=== PATIENT | female | born 1960 | race African-American/Black ===

== ENCOUNTER 2020-05-02 15:22 | IRF | payer BC, SELFPAY ==
--- NOTE | ~2020-05-02 | XR_ITS ---
EXAMINATION: XR chest 1V portable DATE: 05/10/2020 12:22 INDICATION: Edema. TECHNIQUE: A single frontal view of the chest was obtained. COMPARISON: None. FINDINGS: There is no pneumonia, pleural effusion, or pneumothorax. Cardiomegaly is noted. Median markus rnotomy wires and mediastinal surgical clips are seen. IMPRESSION: 1. Cardiomegaly. Reviewed, dictated and finalized at location A. IMPRESSION: 1. Cardiomegaly.
--- NOTE | ~2020-05-02 | US_ITS ---
EXAMINATION: US venous doppler LE EXAM DATE: 05/09/2020 15:13 INDICATION: Lower extremity edema. TECHNIQUE: Multiple grayscale, color flow and Doppler images of the lower extremity deep venous syste ms bilaterally were obtained and reviewed. There is no prior study for comparison. FINDINGS: Right side: The right common femoral, femoral and profunda veins demonstrate normal color flow, respi ratory variation, augmentation and compressibility. Compressibility, color flow confirmed within the right popliteal, posterior tibial, peroneal, and greater saphenous veins. Left side: The left common femoral, femoral and profunda veins demonstrate normal color flow, respira tory variation, augmentation and compressibility. Compressibility, color flow confirmed within the l eft popliteal, posterior tibial, peroneal, and greater saphenous veins. IMPRESSION: No lower extremity deep venous thrombosis bilaterally. Reviewed, dictated and finalized at location A.
--- NOTE | 2020-05-02 15:33 | ADMGEN ---
This patient, Haley Cruz, was admitted to [facility] Room 223-02. Patient/family oriented to hospital policies and general routines including ID bracelet, bed and alarms, visiting hours, pain management, procedures, bathroom and other care routines, personal items, smoking policy, room service/diet, and visiting hours. Valuables list has been completed. Information on how to activate the Rapid Response Team has been discussed. Patient/Family are encouraged to report perceived risks to care and to ask questions if they do not understand what they are told or what they should do.
[2020-05-02 15:48] VITALS: BP 153/78; PULSE 94; RESP 20; TEMP 36.6; O2SAT 98; BMI 54.3
[2020-05-02 16:47] LABS: Glucose Point of Care 309 (65-105)
[2020-05-02 19:52] VITALS: PULSE 70
[2020-05-02] MEDS: carvediloL 25 MG TABLET BY MOUTH (19:52)
[2020-05-02] MEDS: SENNA/DOCUSATE SODIUM TABLET 2 TAB PO (19:53)
[2020-05-02] MEDS: ATORVASTATIN 40 MG TABLET 80 MG BY MOUTH (19:53)
[2020-05-02] MEDS: INSULIN GLARGINE (*BKC) 100 UNITS/ML 10 UNITS SUB-Q (20:15)
[2020-05-02 21:40] LABS: Glucose Point of Care 321 (65-105)
[2020-05-02 21:46] VITALS: BP 142/77; PULSE 88; RESP 18; TEMP 36.7; O2SAT 98
[2020-05-02] MEDS: HEPARIN SODIUM 5,000 UNITS/ML VIAL 7500 UNITS SUB-Q (22:31)
[2020-05-03] VITALS (7 sets, daily range): BP systolic 132–149; BP diastolic 71–84; PULSE 84–98; RESP 18–20; TEMP 36.2–36.9; O2SAT 93–100; BMI 54.3
[2020-05-03 05:05] LABS: Basophils Percent Auto 0.5 % (0.2-1.2); Eosinophils Absolute Auto 0.2 K/mm3 (0-0.3); Eosinophils Percent Auto 2.3 % (0-4.4); Hematocrit 26.3 % (37.0-47.0); Hemoglobin 8.2 g/dL (12.0-15.0); Immature Granulocyte Absolute 0.12 K/mm3 (0.00-0.031); Immature Granulocyte Percent A 1.4 % (0-0.5); Lymphocytes Absolute Auto 1.56 K/mm3 (0.9-3.2); Lymphocytes Percent Auto 18.1 % (18.3-44.2); Mean Corpuscular HGB Conc 31.2 g/dl (32-36); Mean Corpuscular Volume 102.7 fl (80-100); Mean Platelet Volume 10.9 fl (7.4-10.4); Monocytes Absolute Auto 0.9 K/mm3 (0.1-0.6); Monocytes Percent Auto 10.9 % (2.6-8.5); Neutrophils Absolute Auto 5.8 K/mm3 (1.3-6.7); Neutrophils Percent Auto 66.8 % (45.5-73.1); Nucleated Red Blood Cells Absolute Auto 0.1 K/mm3 (0.0-0.012); Nucleated Red Blood Cells Perc 1.3 % (0.0-0.2); Platelet Count Result 232 k/mm3 (150-375); Red Blood Count 2.56 M/mm3 (4.2-5.4); Red Cell Distribution Width 19.6 % (11.5-14.5); White Blood Count 8.6 K/mm3 (4.5-10.0)
[2020-05-03] MEDS: LEVOTHYROXINE SODIUM 75 MCG TABLET PO (05:19)
[2020-05-03 05:22] LABS: Blood Urea Nitrogen 38 mg/dL (7-17); Carbon Dioxide 28 mmol/L (22-30); Chloride 105 mmol/L (98-107); Estimated CRCL calculation 62 ml/min; Estimated Glomerular Filt Rate 55; Glucose 193 mg/dL (65-105); Potassium 4.2 mmol/L (3.4-5.0); Sodium 139 mmol/L (137-145)
[2020-05-03] MEDS: HEPARIN SODIUM 5,000 UNITS/ML VIAL 7500 UNITS SUB-Q ×3 (05:38→21:20)
[2020-05-03] MEDS: INSULIN ASPART (*BKC) 100 UNITS/ML 8 UNITS SUB-Q ×3 (06:57→17:00)
[2020-05-03 07:17] LABS: Glucose Point of Care 162 (65-105)
[2020-05-03] MEDS: SENNA/DOCUSATE SODIUM TABLET 2 TAB PO (07:52)
[2020-05-03] MEDS: ASPIRIN 81 MG ENTERIC TABLET PO (07:52)
[2020-05-03] MEDS: predniSONE 20 MG TABLET PO (07:52)
[2020-05-03] MEDS: carvediloL 25 MG TABLET BY MOUTH ×3 (07:52→17:02)
[2020-05-03] MEDS: VITAMIN B COMPLEX CAPSULE 1 CAP PO (07:52)
[2020-05-03] MEDS: AMIODARONE HCL 200 MG TABLET PO (07:53)
[2020-05-03] MEDS: FUROSEMIDE 40 MG TABLET PO (07:53)
[2020-05-03] MEDS: CAPSAICIN 0.025% CREAM 60 GM TUBE 1 APPLIC TOPICAL ×3 (07:53→17:02)
[2020-05-03] MEDS: LATANOPROST 0.005% OP SOLN 2.5 ML BTL 1 DROP EACH EYE (07:54)
[2020-05-03] MEDS: polyethylene glycoL 3350 17 GM POWD.PACK BY MOUTH (07:54)
--- NOTE | 2020-05-03 11:00 | WPDREHABHP ---
H&P: HPI History of Present Illness Chief complaint: aortic dissection Narrative: Haley Cruz is a 60 year old female HISTORY OF PRESENT ILLNESS: The patient's primary rehab impairment category is cardiac The etiologic diagnosis is aortic dissection / status post surgery I saw this patient [id number] on May 03, 2020 at 11:00 a.m. The patient is a 60-year-old woman with a past medical history of coronary artery disease, hypertension, dyslipidemia, non ST elevation PA, pericardial effusion with cardiac tamponade and type 2 diabetes mellitus who presented to a local hospital in March 29, [address] scan was found to have a type a aortic dissection. She was walking to her car following the CT scan and fell. She broke fall with her left hand and also struck her knee and right side of her face on the ground. She had an immediate onset of swelling and bruising around the right eye and was unable to open it. Facial she TIANA showed no fracture and imaging of the knee and wrist were negative for fracture. She was transferred to [facility] for further management of the aortic dissection. Cardiothoracic surgery was consulted and the since the patient was on Plavix and was asymptomatic they opted to perform the repair after Plavix washed out and the patient was monitored in the ICU until that could be completed. Patient underwent surgical repair on April 08, 2020 followed by a delayed sternal closure with plating on March 20, 2020. Ophthalmology was consulted to evaluate of preseptal hematoma with no intervention as patient vision remains intact. The patient hospitalization has been significant for atrial fibrillation with rapid ventricular response treated with amiodarone and Coreg, acute blood-loss anemia currently stable, acute pulmonary insufficiency currently on room air, acute on chronic combined systolic and diastolic heart failure ejection fraction 40%, coronary artery disease aspirin and statin continued facial trauma stable vision within normal limit acute kidney injury hemodialysis catheter removed April 26 and had has resolved uncontrolled diabetes mellitus she has been weaned off steroids slowly over a year, Lantus and Humalog, hypothyroidism continued with Synthroid and postoperative pain treated with neurologic 6 the patient will be discharged to rehab on heparin 5000 units q.8 hours for DVT prophylaxis. The patient has not traveled outside the [place] or had contact with someone who is ill that has traveled outside the [place] in the past 21 days. The patient has not traveled to an area within the [place] that is experiencing known transmission of the Coronavirus and has not had close personal contact with anyone that has. The patient does not have a fever. The patient is not experiencing any lower respiratory illness symptoms. Therapy was initiated at the acute care facility and the patient transferred to us from [facility] on May 02, 2012 on FALLS OR SURGERIES: The patient has had major surgeries in the 100 days prior to admission. They had falls in the past year. They had falls with injury in the past year. PAST MEDICAL HISTORY: abnormal cardiovascular stress test, arthritis, atherosclerosis of the coronary artery disease, dyslipidemia, elevated liver enzymes, essential hypertension, non ST elevation PA, hypothyroidism, mental disorder or distress rather, neuroendocrine carcinoma, orthostatic hypotension, papillary carcinoma of the thyroid, pericardial effusion with cardiac tamponade, pneumonia of the right lower lobe, sepsis, type 2 diabetes mellitus. PAST SURGICAL HISTORY: Retroperitoneal abdominal biopsy 2016, cholecystectomy, fine needle aspiration 2012, pancreas biopsy, thyroidectomy, partial splenectomy, tumor removal, tonsillectomy, wisdom tooth extraction. SOCIAL HISTORY: Never a smoker no alcohol or drug abuse. The patient was with the daughter. Daughters name is January. She lives in a on
[2020-05-03 11:56] LABS: Glucose Point of Care 160 (65-105)
--- NOTE | 2020-05-03 13:11 | PCNSR ---
On 05/03/20, the student, Teddy Sykes, provided care and completed [facility] documentation on this patient. I have reviewed the student's documentation and agree with the findings.
--- NOTE | 2020-05-03 15:52 | RPD ---
INDIVIDUALIZED PLAN OF CARE FOR Haley Cruz Brief Synthesis of Pre-Admission Screen, Post-Admission Evaluation and Therapy Evaluations: The patient presents to rehab with an aortic dissection. Comorbidities include acute postoperative pain, acute blood loss anemia, atrial fibrillation with RVR, acute pulmonary insufficiency, acute on chronic combined systolic and diastolic heart failure, coronary artery disease, hypertension, facial trauma, morbid obesity, acute kidney injury requiring hemodialysis, diabetes mellitus type 2 with hyperglycemia, hypothyroidism, sternotomy with aortic repair with delayed closure and sternal plating. The patient?s needs will be best met in an intensive program vs. at a lower level of care. The patient requires physician services for medical oversight, management of post-op complications in setting of present comorbidities, and pain management. The patient requires nursing services for anticoagulation therapy, diabetes training, DVT prophylactics, infection protection, medication management and education, pressure relief, and wound care. Deficits include:ADLs, Balance, Endurance, Family Training/Education, Mobility, Pain Management, ROM, Safety, Strength, and Transfers Director Ambulatory/Case Management for: Discharge Planning and Patient/Family Counseling Physical Therapy: 5 days per week for 90 minutes. Treatments may include: Therapeutic Exercise, Gait Training, Neuromuscular Re-education, Transfer Training, Community Reintegration, Bed Mobility, Patient/Family Education, Wheelchair Mobility Group Therapy/Concurrent Therapy Rationales: -Improve attention span during functional activities in a distracted environment. -Enhance problem solving and/or adequate judgment skills during functional activities in a distracted environment. -Promote increased safety awareness in a distracted environment to reduce fall risk with functional tasks, transfers, and ambulation to allow a more safe, self-sufficient return to the home environment. -Improve dynamic balance skills to promote safety and independence with functional activities in a distracted environment for maximum gain. Occupational Therapy: 5 days per week for 90 minutes. Treatments may include: Therapeutic Exercise, Therapeutic Activity, Cognitive Training, Self-Care Transfer Training, Community Reintegration, Home Management, Patient/Family Education, Wheelchair Mobility Training, Energy Conservation Training Group Therapy/Concurrent Therapy Rationales: -Allow therapist to observe and teach generalization and carry-over of skills learned in individual therapy. -Enhance problem solving and sequencing skills during therapeutic activities in a distracted environment. -Promote increased safety awareness in a realistic setting to reduce fall risk with functional tasks due to visual and verbal distractions. -Increase functional level with ADLs, ADL transfers and use of adaptive equipment through therapeutic activities with others while promoting safety to allow a more safe, self-sufficient return home. Medical Prognosis: Good Anticipated Length of Stay: 10 days Rehab Goals: Eating Goal: 06-Independent Oral Hygiene Goal: 06-Independent Toileting Hygiene Goal: 06-Independent Shower/Bathe Self Goal: 06-Independent Upper Body Dressing Goal: 06-Independent Lower Body Dressing Goal: 06-Independent Putting On/Taking Off Footwear Goal: 06-Independent Rolling Left and Right Goal: 06-Independent Sit to Lying Goal: 06-Independent Lying to Sitting on Side of Bed Goal: 06-Independent Sit to Stand Goal: 06-Independent Chair/Dim-vw-Ppnxx Transfer Goal: 06-Independent Toilet Transfer Goal: 06-Independent Car Transfer Goal: 06-Independent Walk 10' Goal: 06-Independent Walk 50' with Two Turns Goal: 06-Independent Walk 150' Goal: 06-Independent Walk 10' on Uneven Surface Goal: 06-Independent 1 Step (Curb) Goal: 05-Setup or Clean Up Assistance 4 Steps Goal: 09-Not Applicable 12 Steps Goal Score:
[2020-05-03 16:48] LABS: Glucose Point of Care 225 (65-105)
[2020-05-03] MEDS: INSULIN ASPART (*BKC) 100 UNITS/ML SUB-Q (17:00)
[2020-05-03] MEDS: POLYSACCHARIDE IRON COMPLEX 150 MG CAPSULE PO (17:01)
[2020-05-03] MEDS: INSULIN GLARGINE (*BKC) 100 UNITS/ML 10 UNITS SUB-Q (17:03)
[2020-05-03] MEDS: SILVERGEL (ELTA) 45 ML 1 APPLIC TOPICAL (17:03)
[2020-05-03 21:12] LABS: Glucose Point of Care 141 (65-105)
[2020-05-03] MEDS: ATORVASTATIN 40 MG TABLET 80 MG BY MOUTH (21:20)
[2020-05-04] VITALS (7 sets, daily range): BP systolic 124–169; BP diastolic 75–83; PULSE 81–98; RESP 16–20; TEMP 36.2–36.9; O2SAT 98–100
[2020-05-04] MEDS: HEPARIN SODIUM 5,000 UNITS/ML VIAL 7500 UNITS SUB-Q ×3 (06:47→20:05)
[2020-05-04] MEDS: LEVOTHYROXINE SODIUM 75 MCG TABLET PO (06:47)
[2020-05-04 06:48] LABS: Glucose Point of Care 109 (65-105)
[2020-05-04] MEDS: AMIODARONE HCL 200 MG TABLET PO (08:43)
[2020-05-04] MEDS: carvediloL 25 MG TABLET BY MOUTH ×3 (08:43→17:13)
[2020-05-04] MEDS: POLYSACCHARIDE IRON COMPLEX 150 MG CAPSULE PO ×2 (08:43→17:11)
[2020-05-04] MEDS: predniSONE 20 MG TABLET PO (08:44)
[2020-05-04] MEDS: FUROSEMIDE 40 MG TABLET PO (08:44)
[2020-05-04] MEDS: ASPIRIN 81 MG ENTERIC TABLET PO (08:44)
[2020-05-04] MEDS: VITAMIN B COMPLEX CAPSULE 1 CAP PO (08:44)
[2020-05-04] MEDS: SENNA/DOCUSATE SODIUM TABLET 2 TAB PO (08:44)
[2020-05-04] MEDS: polyethylene glycoL 3350 17 GM POWD.PACK BY MOUTH (08:44)
[2020-05-04] MEDS: LATANOPROST 0.005% OP SOLN 2.5 ML BTL 1 DROP EACH EYE (08:45)
[2020-05-04] MEDS: INSULIN ASPART (*BKC) 100 UNITS/ML 8 UNITS SUB-Q ×3 (08:51→17:12)
[2020-05-04 12:35] LABS: Glucose Point of Care 159 (65-105)
[2020-05-04] MEDS: SILVERGEL (ELTA) 45 ML 1 APPLIC TOPICAL (14:38)
[2020-05-04] MEDS: CAPSAICIN 0.025% CREAM 60 GM TUBE 1 APPLIC TOPICAL ×2 (14:38→17:13)
[2020-05-04 17:05] LABS: Glucose Point of Care 194 (65-105)
[2020-05-04] MEDS: INSULIN GLARGINE (*BKC) 100 UNITS/ML 10 UNITS SUB-Q (17:10)
[2020-05-04] MEDS: ATORVASTATIN 40 MG TABLET 80 MG BY MOUTH (20:06)
[2020-05-04 21:06] LABS: Glucose Point of Care 227 (65-105)
[2020-05-05] VITALS (7 sets, daily range): BP systolic 116–149; BP diastolic 65–89; PULSE 85–98; RESP 16–18; TEMP 36.2–36.9; O2SAT 97–98
[2020-05-05] MEDS: LEVOTHYROXINE SODIUM 75 MCG TABLET PO (06:27)
[2020-05-05] MEDS: HEPARIN SODIUM 5,000 UNITS/ML VIAL 7500 UNITS SUB-Q ×3 (06:27→20:41)
[2020-05-05 06:52] LABS: Glucose Point of Care 141 (65-105)
[2020-05-05] MEDS: INSULIN ASPART (*BKC) 100 UNITS/ML 8 UNITS SUB-Q ×3 (09:20→17:51)
[2020-05-05] MEDS: polyethylene glycoL 3350 17 GM POWD.PACK BY MOUTH (09:20)
[2020-05-05] MEDS: carvediloL 25 MG TABLET BY MOUTH ×3 (09:21→17:50)
[2020-05-05] MEDS: FUROSEMIDE 40 MG TABLET PO (09:21)
[2020-05-05] MEDS: LATANOPROST 0.005% OP SOLN 2.5 ML BTL 1 DROP EACH EYE (09:21)
[2020-05-05] MEDS: SENNA/DOCUSATE SODIUM TABLET 2 TAB PO (09:21)
[2020-05-05] MEDS: ASPIRIN 81 MG ENTERIC TABLET PO (09:23)
[2020-05-05] MEDS: CAPSAICIN 0.025% CREAM 60 GM TUBE 1 APPLIC TOPICAL ×2 (09:23→12:34)
[2020-05-05] MEDS: AMIODARONE HCL 200 MG TABLET PO (09:23)
[2020-05-05] MEDS: POLYSACCHARIDE IRON COMPLEX 150 MG CAPSULE PO ×2 (09:23→17:51)
[2020-05-05] MEDS: predniSONE 20 MG TABLET PO (09:23)
[2020-05-05] MEDS: VITAMIN B COMPLEX CAPSULE 1 CAP PO (09:25)
[2020-05-05] MEDS: SILVERGEL (ELTA) 45 ML 1 APPLIC TOPICAL (09:25)
[2020-05-05 11:49] LABS: Glucose Point of Care 141 (65-105)
--- NOTE | 2020-05-05 13:47 | WPDNEURORHBP ---
Subjective Date/time seen: 05/05/20 13:47 CAD,Hypertension,Hyperlipidemia,Aortic dissection,S/P ripair, Functional Status Ambulation Ability Ability to Ambulate 10 Feet: Standby Assistance Ambulation Assistive Devices: Walker, Standard Transfers Ability Ability to Transfer In/Out of Chair: Moderate Assistance X 1 Exam Const: General: cooperative, comfortable and no acute distress Nutritional Appearance: obese Orientation/consciousness: patient oriented x3 HENMT: Head: normal to inspection Eyes: General: appearance normal, both eyes and all related structures Neck: Neck: full ROM Resp: Effort & Inspection: able to speak in complete sentences Cardio: Rhythm: abnormal rhythm GI: Auscultation: normal bowel sounds Skin: General skin exam: no rashes or lesions noted Neuro: General: patient oriented x3 Cranial nerves: Yes CN's II-XII intact bilaterally Cognition (Neuro): normal cognition Speech: normal speech Gait exam (Neuro): Unable to assess gait Motor exam (neuro): Abnormal motor strength present Sensory Exam: Sensory deficit (Neuro) Deep tendon reflexes (DTR's): Right triceps reflex intensity grade: 1+, Left triceps reflex intensity grade: 1+, Rt Biceps (C5, C6): 1+, Left biceps reflex intensity grade: 1+, Right brachioradialis reflex intensity grade: 1+, Left brachioradialis reflex intensity grade: 1+, Right patellar reflex intensity grade: 1+, Left patellar reflex intensity grade: 1+, Right ankle reflex intensity grade: 0 and Left ankle reflex intensity grade: 0 Extrem: General: normal to inspection Psych: Appearance: grossly normal Objective Data Vital Signs Vital Signs: Vital Signs - 24 hr 05/04/20 14:00 05/04/20 14:36 05/04/20 17:13 Temperature 36.9 C Pulse Rate 98 96 96 Respiratory Rate 16 Blood Pressure 124/79 Pulse Oximetry 100 05/04/20 22:00 05/05/20 05:51 05/05/20 09:21 Temperature 36.2 C L 36.2 C L Pulse Rate 81 98 98 Respiratory Rate 18 18 Blood Pressure 140/75 149/89 H Pulse Oximetry 98 97 05/05/20 09:23 05/05/20 12:34 Temperature Pulse Rate 98 98 Respiratory Rate Blood Pressure Pulse Oximetry Intake/Output Intake/Output: Intake & Output 05/02/20 05/03/20 05/04/2019/20 23:59 23:59 23:59 23:59 Intake Total 360 360 600 480 Balance 360 360 600 480 Meds/Results Medications: Active Medications Generic Name Dose Route Start Last Admin Trade Name Freq PRN Reason Stop Dose Admin Acetaminophen 500 mg 05/02/20 17:25 Tylenol Tablet PO Q6H PRN Pain 1-3 Amiodarone HCl 200 mg 05/03/20 09:00 05/05/20 09:23 Pacerone PO 200 mg DAILY LAMONTE Administration Artificial Tears 2 drop 05/02/20 17:25 Artificial Tears EACH EYE TID PRN dry eyes Aspirin 81 mg 05/03/20 09:00 05/05/20 09:23 Aspirin Ec PO 81 mg DAILY LAMONTE Administration Atorvastatin Calcium 80 mg 05/02/20 21:00 05/04/20 20:06 Lipitor BY MOUTH 06/01/20 21:01 80 mg HS LAMONTE Administration Bisacodyl 10 mg 05/02/20 17:25 Dulcolax Suppository RECTAL DAILY PRN Constipation Capsaicin 1 applic 05/03/20 09:00 05/05/20 12:34 Zostrix TOPICAL 1 applic TID LAMONTE Administration Carvedilol 25 mg 05/02/20 17:40 05/05/20 12:34 Coreg BY MOUTH 25 mg TID LAMONTE Administration Dextrose 12.5 gm 05/02/20 18:35 Dextrose 50% Syringe IV PUSH PRN PRN Hypoglycemia Protocol Furosemide 40 mg 05/03/20 09:00 05/05/20 09:21 Lasix Tablet PO 40 mg DAILY LAMONTE Administration Glucagon 1 mg 05/02/20 18:35 Glucagon For Inj IM PRN PRN Hypoglycemia Protocol Glucose 15 gm 05/02/20 18:35 Glutose 15 PO PRN PRN Hypoglycemia Protocol Heparin Sodium (Porcine) 7,500 units 05/02/20 22:00 05/05/20 13:17 Heparin Sodium SUB-Q 7,500 units Q8HR LAMONTE Administration Dextrose 1,000 mls @ 100 mls/hr 05/02/20 18:35 Dextrose 5% 1,000 Ml IVPB PRN PRN
[2020-05-05 17:14] LABS: Glucose Point of Care 215 (65-105)
[2020-05-05] MEDS: INSULIN ASPART (*BKC) 100 UNITS/ML SUB-Q (17:49)
[2020-05-05] MEDS: INSULIN GLARGINE (*BKC) 100 UNITS/ML 10 UNITS SUB-Q (17:53)
[2020-05-05] MEDS: ATORVASTATIN 40 MG TABLET 80 MG BY MOUTH (20:41)
[2020-05-05 21:04] LABS: Glucose Point of Care 216 (65-105)
[2020-05-06] VITALS (7 sets, daily range): BP systolic 109–118; BP diastolic 63–75; PULSE 82–94; RESP 18–20; TEMP 36.3–36.9; O2SAT 94–96
[2020-05-06] MEDS: LEVOTHYROXINE SODIUM 75 MCG TABLET PO (06:27)
[2020-05-06] MEDS: HEPARIN SODIUM 5,000 UNITS/ML VIAL 7500 UNITS SUB-Q ×3 (06:28→20:55)
[2020-05-06 07:03] LABS: Glucose Point of Care 119 (65-105)
[2020-05-06] MEDS: INSULIN ASPART (*BKC) 100 UNITS/ML 8 UNITS SUB-Q ×3 (09:26→17:49)
[2020-05-06] MEDS: POLYSACCHARIDE IRON COMPLEX 150 MG CAPSULE PO ×2 (09:26→17:48)
[2020-05-06] MEDS: SENNA/DOCUSATE SODIUM TABLET 2 TAB PO (09:27)
[2020-05-06] MEDS: carvediloL 25 MG TABLET BY MOUTH ×3 (09:27→17:47)
[2020-05-06] MEDS: VITAMIN B COMPLEX CAPSULE 1 CAP PO (09:27)
[2020-05-06] MEDS: AMIODARONE HCL 200 MG TABLET PO (09:28)
[2020-05-06] MEDS: FUROSEMIDE 40 MG TABLET PO (09:28)
[2020-05-06] MEDS: predniSONE 20 MG TABLET PO (09:28)
[2020-05-06] MEDS: polyethylene glycoL 3350 17 GM POWD.PACK BY MOUTH (09:28)
[2020-05-06] MEDS: ASPIRIN 81 MG ENTERIC TABLET PO (09:28)
[2020-05-06] MEDS: LATANOPROST 0.005% OP SOLN 2.5 ML BTL 1 DROP EACH EYE (09:36)
[2020-05-06] MEDS: SILVERGEL (ELTA) 45 ML 1 APPLIC TOPICAL (09:37)
[2020-05-06 12:27] LABS: Glucose Point of Care 118 (65-105)
[2020-05-06 17:22] LABS: Glucose Point of Care 228 (65-105)
[2020-05-06] MEDS: INSULIN ASPART (*BKC) 100 UNITS/ML SUB-Q (17:48)
[2020-05-06] MEDS: INSULIN GLARGINE (*BKC) 100 UNITS/ML 10 UNITS SUB-Q (17:49)
[2020-05-06] MEDS: ATORVASTATIN 40 MG TABLET 80 MG BY MOUTH (20:55)
[2020-05-06 21:07] LABS: Glucose Point of Care 150 (65-105)
[2020-05-07] VITALS (7 sets, daily range): BP systolic 113–137; BP diastolic 56–69; PULSE 82–92; RESP 18–20; TEMP 36.4–37.1; O2SAT 98–100
[2020-05-07] MEDS: HEPARIN SODIUM 5,000 UNITS/ML VIAL 7500 UNITS SUB-Q ×3 (06:10→20:44)
[2020-05-07] MEDS: LEVOTHYROXINE SODIUM 75 MCG TABLET PO (06:10)
[2020-05-07 06:36] LABS: Glucose Point of Care 96 (65-105)
[2020-05-07] MEDS: AMIODARONE HCL 200 MG TABLET PO (07:52)
[2020-05-07] MEDS: ASPIRIN 81 MG ENTERIC TABLET PO (07:52)
[2020-05-07] MEDS: POLYSACCHARIDE IRON COMPLEX 150 MG CAPSULE PO ×2 (07:52→17:13)
[2020-05-07] MEDS: carvediloL 25 MG TABLET BY MOUTH ×3 (07:52→17:12)
[2020-05-07] MEDS: FUROSEMIDE 40 MG TABLET PO (07:52)
[2020-05-07] MEDS: predniSONE 20 MG TABLET PO (07:53)
[2020-05-07] MEDS: SENNA/DOCUSATE SODIUM TABLET 2 TAB PO (07:53)
[2020-05-07] MEDS: VITAMIN B COMPLEX CAPSULE 1 CAP PO (07:54)
[2020-05-07] MEDS: polyethylene glycoL 3350 17 GM POWD.PACK BY MOUTH (07:54)
[2020-05-07] MEDS: INSULIN ASPART (*BKC) 100 UNITS/ML 8 UNITS SUB-Q ×3 (07:55→17:14)
[2020-05-07] MEDS: LATANOPROST 0.005% OP SOLN 2.5 ML BTL 1 DROP EACH EYE (08:48)
[2020-05-07 11:30] LABS: Glucose Point of Care 147 (65-105)
--- NOTE | 2020-05-07 12:24 | PC.NURSE ---
patient just had pain med at 0846 so the 1000 a.m. med was not given.
--- NOTE | 2020-05-07 12:55 | PCPTNOTE ---
Haley Cruz was evaluated for a bariatric wheeled walker on 05/07/2020 by this physical therapist. The bariatric wheeled walker will resolve patient's mobility limitations and will be used for ADL's within the home. The patient can safely use the wheeled walker. ?The wheeled walker will resolve the patient?s mobility deficits, including safety with transfers/gait and ADL's. Tabitha Rose PT
--- NOTE | 2020-05-07 14:19 | PCPTNOTE ---
Tabitha Rose, PT completed an inpatient rehab wheelchair evaluation on Haley Cruz on 05/07/2020. The patient is unable to safely and independently ambulate household distances due to their current impairments. Their diagnosis is aortic dissection and their impairments include decreased strength, decreased endurance, decreased range of motion, decreased balance, lower extremity weakness, and ataxia. Haley's weight bearing status is weight-bearing as tolerated on the bilateral lower legs. The patient demonstrates significant functional mobility limitations that impair their ability to participate in mobility-related activities of daily living (MRADLs), including toileting, feeding, dressing, grooming, and bathing in the customary locations in the home. These limitations cannot be sufficiently resolved by the use of an appropriately fitted cane or walker. It is recommended that the patient utilize a wheelchair for functional mobility within the home in order to facilitate optimal safety, independence and participation in all MRADL's and adequately access their home environment on a regular basis. The patient's home provides adequate access between rooms, maneuvering space, and surfaces to accommodate the recommended wheelchair. The use of a wheelchair for functional mobility is strongly recommended and the patient is receptive to using the wheelchair. The use of this wheelchair will significantly improve the patient's ability to participate in MRADLS and the patient will use it on a regular basis in the home. This will facilitate optimal safety, independence, and participation. The patient has demonstrated sufficient physical and mental capabilities needed to safely propel a manual wheelchair that is provided in the home during a typical day. Recommended Wheelchair Frame: extra heavy duty Recommended Wheelchair Size: 22 x18 Recommended Wheelchair Cushion: standard Wheelchair Leg Recommendations: elevating, detachable - An extra heavy duty wheelchair is recommended because the patient weighs more than 300 pounds. Their height is 5 feet 1 inch and their weight is 314 pounds. Elevating legrests are recommended because the patient has significant edema of the lower extremities that requires an elevating legrest. - Anti-tippers are recommended due to patient demonstrating increased risk for falls. They would benefit from anti-tippers with added safety and stabilization. Tabitha Rose PT __7/21/20 Evaluating Therapist Date I agree with and certify that the above recommendation is medically necessary. Referring Physician Date I agree with and certify that the above recommendation is medically necessary. Referring Physician Date
--- NOTE | 2020-05-07 14:24 | WPDNEURORHBP ---
Subjective Date/time seen: 05/07/20 14:24 Interval history: this 60-year-old woman is here post surgery for aortic dissection and multiple comorbidities mentioned in the H and P she is complaining of increasing pain and we have to adjust her oxycodone. Otherwise she is making really excellent progress considering the complicated course she had next She denies any headache nausea vomiting chest pain or shortness of breath Review of Systems Review of Systems: All systems reviewed & are unremarkable except as noted in HPI and below Functional Status Ambulation Ability Ability to Ambulate 10 Feet: Standby Assistance Ability to Ambulate 50 Feet With 2 Turns: Standby Assistance Ability to Ambulate 150 Feet: Standby Assistance Ambulation Assistive Devices: Walker, Wheeled Transfers Ability Ability to Transfer In/Out of Chair: Independent Exam Const: General: comfortable and no acute distress HENMT: General nose exam: Normal nares present Mouth: Yes moist mucous membranes Eyes: General: appearance normal, both eyes and all related structures Neck: Neck: supple and no JVD Resp: Effort & Inspection: normal respiratory effort Auscultation: clear to auscultation bilaterally Cardio: Rate: regular rate Rhythm: regular rhythm GI: GI Palp: Yes Soft to palpation Auscultation: normal bowel sounds Skin: General skin exam: normal color and no rashes or lesions noted Neuro: Other: patient's mental status and cranial exam morales is stable her generalized weakness is improving she is making excellent progress Extrem: General: normal to inspection Psych: Mental Status: mental status grossly normal Objective Data Vital Signs Vital Signs: Vital Signs - 24 hr 05/06/20 17:47 05/06/20 22:00 05/07/20 06:00 Temperature 36.9 C 36.4 C Pulse Rate 88 82 84 Respiratory Rate 20 20 Blood Pressure 115/67 126/62 Pulse Oximetry 94 98 05/07/20 07:52 05/07/20 08:00 05/07/20 12:51 Temperature Pulse Rate 84 84 84 Respiratory Rate 20 Blood Pressure Pulse Oximetry 98 05/07/20 14:00 Temperature 37.1 C Pulse Rate 92 Respiratory Rate 18 Blood Pressure 137/69 Pulse Oximetry 100 Intake/Output Intake/Output: Intake & Output 05/04/20 05/05/20 05/06/20 05/07/20 23:59 23:59 23:59 23:59 Intake Total 600 720 600 960 Balance 600 720 600 960 Meds/Results Medications: Active Medications Generic Name Dose Route Start Last Admin Trade Name Freq PRN Reason Stop Dose Admin Acetaminophen 500 mg 05/02/20 17:25 Tylenol Tablet PO Q6H PRN Pain 1-3 Amiodarone HCl 200 mg 05/03/20 09:00 05/07/20 07:52 Pacerone PO 200 mg DAILY LAMONTE Administration Artificial Tears 2 drop 05/02/20 17:25 Artificial Tears EACH EYE TID PRN dry eyes Aspirin 81 mg 05/03/20 09:00 05/07/20 07:52 Aspirin Ec PO 81 mg DAILY LAMONTE Administration Atorvastatin Calcium 80 mg 05/02/20 21:00 05/06/20 20:55 Lipitor BY MOUTH 06/01/20 21:01 80 mg HS LAMONTE Administration Bisacodyl 10 mg 05/02/20 17:25 Dulcolax Suppository RECTAL DAILY PRN Constipation Carvedilol 25 mg 05/02/20 17:40 05/07/20 12:51 Coreg BY MOUTH 25 mg TID LAMONTE Administration Dextrose 12.5 gm 05/02/20 18:35 Dextrose 50% Syringe IV PUSH PRN PRN Hypoglycemia Protocol Furosemide 40 mg 05/03/20 09:00 05/07/20 07:52 Lasix Tablet PO 40 mg DAILY LAMONTE Administration Glucagon 1 mg 05/02/20 18:35 Glucagon For Inj IM PRN PRN Hypoglycemia Protocol Glucose 15 gm 05/02/20 18:35 Glutose 15 PO PRN PRN Hypoglycemia Protocol Heparin Sodium (Porcine) 7,500 units 05/02/20 22:00 05/07/20 12:51 Heparin Sodium SUB-Q 7,500 units Q8HR LAMOTNE Administration Dextrose 1,000 mls @ 100 mls/hr 05/02/20 18:35 Dextrose 5% 1,000 Ml IVPB PRN PRN Hypoglycemia Protocol Insulin Aspart 4 - 8 units 05/03/20 08:00 05/07/20 12
[2020-05-07 16:35] LABS: Glucose Point of Care 259 (65-105)
[2020-05-07] MEDS: INSULIN ASPART (*BKC) 100 UNITS/ML SUB-Q (17:14)
[2020-05-07] MEDS: INSULIN GLARGINE (*BKC) 100 UNITS/ML 10 UNITS SUB-Q (17:22)
[2020-05-07] MEDS: ATORVASTATIN 40 MG TABLET 80 MG BY MOUTH (20:45)
[2020-05-07 21:01] LABS: Glucose Point of Care 232 (65-105)
[2020-05-08] VITALS (7 sets, daily range): BP systolic 100–107; BP diastolic 54–69; PULSE 89–95; RESP 18–20; TEMP 36.2–37; O2SAT 96–99
[2020-05-08] MEDS: ACETAMINOPHEN 500 MG TABLET PO (01:48)
[2020-05-08] MEDS: HEPARIN SODIUM 5,000 UNITS/ML VIAL 7500 UNITS SUB-Q (05:40)
[2020-05-08] MEDS: LEVOTHYROXINE SODIUM 75 MCG TABLET PO (05:40)
[2020-05-08 07:13] LABS: Glucose Point of Care 151 (65-105)
[2020-05-08] MEDS: POLYSACCHARIDE IRON COMPLEX 150 MG CAPSULE PO ×2 (08:45→17:34)
[2020-05-08] MEDS: AMIODARONE HCL 200 MG TABLET PO (08:45)
[2020-05-08] MEDS: ASPIRIN 81 MG ENTERIC TABLET PO (08:50)
[2020-05-08] MEDS: carvediloL 25 MG TABLET BY MOUTH ×3 (08:50→17:35)
[2020-05-08] MEDS: FUROSEMIDE 40 MG TABLET PO (08:51)
[2020-05-08] MEDS: predniSONE 20 MG TABLET PO (08:52)
[2020-05-08] MEDS: VITAMIN B COMPLEX CAPSULE 1 CAP PO (08:52)
[2020-05-08] MEDS: SENNA/DOCUSATE SODIUM TABLET 2 TAB PO (08:52)
[2020-05-08] MEDS: polyethylene glycoL 3350 17 GM POWD.PACK BY MOUTH (08:52)
[2020-05-08] MEDS: LATANOPROST 0.005% OP SOLN 2.5 ML BTL 1 DROP EACH EYE (08:52)
[2020-05-08] MEDS: INSULIN ASPART (*BKC) 100 UNITS/ML 8 UNITS SUB-Q ×3 (09:04→17:34)
[2020-05-08 11:59] LABS: Glucose Point of Care 148 (65-105)
--- NOTE | 2020-05-08 12:14 | PCNFU ---
Nutrition Follow-Up Complete: Obesity related to increased oral inatke as evidenced by BMI of 54.3 Goal: Patient to consume 75% or more of meals Patient is meeting goal. Pt current nutrition is Diabetic and 4 grams sodium. Nutrition recommendation: Agree with current recommendations. Last recorded weight is 143.6 kg. Bowel Motility: 05/04 last reported bowel movement Labs Reviewed: POC Capillary Glucose: 151 Meds Noted: pacerone, lipitor, dulcolax, heparin sodium, novolog, lantus, synthroid, predinosone, vitamin B, senokot, niferex, miralax, lasix, corveg Additional Notes: Provided patient with 3 educational handouts on diabetes and nutrition as well as heart healthy and diabetes diet combination. Reviewed handouts briefly with patient. Patient states appetite is good. Patient did not report any diet related concerns or have any questions/concerns. Follow up in 7 days
--- NOTE | 2020-05-08 12:46 | PCNSR ---
On 05/08/20, the student, Teddy Sykes, provided care and completed [facility] on this patient. I have reviewed the student's documentation and agree with the findings.
--- NOTE | 2020-05-08 14:34 | WPDNEURORHBP ---
Subjective Date/time seen: 05/08/20 14:34 Interval history: this 60-year-old woman is here post surgery for aortic dissection she is doing fairly well the blister over the right leg has been addressed by the wound care nurse and swelling of the legs is stable She denies any headache nausea vomiting chest pain shortness of breath fever chills or sore throat Review of Systems Review of Systems: All systems reviewed & are unremarkable except as noted in HPI and below Functional Status Ambulation Ability Ability to Ambulate 10 Feet: Independent Ability to Ambulate 50 Feet With 2 Turns: Independent Ability to Ambulate 150 Feet: Independent Ambulation Assistive Devices: Walker, Wheeled Transfers Ability Ability to Transfer In/Out of Chair: Independent Exam Const: General: comfortable and no acute distress HENMT: General nose exam: Normal nares present Mouth: Yes moist mucous membranes Eyes: General: appearance normal, both eyes and all related structures Neck: Neck: supple and no JVD Resp: Effort & Inspection: normal respiratory effort Auscultation: clear to auscultation bilaterally Cardio: Rate: regular rate Rhythm: regular rhythm GI: GI Palp: Yes Soft to palpation Auscultation: normal bowel sounds Skin: General skin exam: normal color and no rashes or lesions noted Neuro: Other: patient remains awake alert well oriented and strength is improving and making excellent progress Extrem: Other: the swelling of the legs are stable and the blister is being addressed with the wound care nurse Psych: Mental Status: mental status grossly normal Objective Data Vital Signs Vital Signs: Vital Signs - 24 hr 05/07/20 17:12 05/07/20 22:00 05/08/20 05:55 Temperature 36.6 C 36.2 C L Pulse Rate 92 82 89 Respiratory Rate 18 18 Blood Pressure 113/56 L 101/69 Pulse Oximetry 99 96 05/08/20 08:45 05/08/20 08:50 05/08/20 14:00 Temperature 37.0 C Pulse Rate 89 89 95 Respiratory Rate 20 Blood Pressure 100/54 L Pulse Oximetry 98 05/08/20 14:02 Temperature Pulse Rate 95 Respiratory Rate Blood Pressure Pulse Oximetry Intake/Output Intake/Output: Intake & Output 05/05/20 05/06/20 05/07/20 05/08/20 23:59 23:59 23:59 23:59 Intake Total 238 473 2113 480 Balance 040 365 6304 480 Meds/Results Medications: Active Medications Generic Name Dose Route Start Last Admin Trade Name Freq PRN Reason Stop Dose Admin Acetaminophen 500 mg 05/02/20 17:25 05/08/20 01:48 Tylenol Tablet PO 500 mg Q6H PRN Administration Pain 1-3 Amiodarone HCl 200 mg 05/03/20 09:00 05/08/20 08:45 Pacerone PO 200 mg DAILY LAMONTE Administration Artificial Tears 2 drop 05/02/20 17:25 Artificial Tears EACH EYE TID PRN dry eyes Aspirin 81 mg 05/03/20 09:00 05/08/20 08:50 Aspirin Ec PO 81 mg DAILY LAMONTE Administration Atorvastatin Calcium 80 mg 05/02/20 21:00 05/07/20 20:45 Lipitor BY MOUTH 06/01/20 21:01 80 mg HS LAMONTE Administration Bisacodyl 10 mg 05/02/20 17:25 Dulcolax Suppository RECTAL DAILY PRN Constipation Carvedilol 25 mg 05/02/20 17:40 05/08/20 14:02 Coreg BY MOUTH 25 mg TID LAMONTE Administration Dextrose 12.5 gm 05/02/20 18:35 Dextrose 50% Syringe IV PUSH PRN PRN Hypoglycemia Protocol Furosemide 40 mg 05/03/20 09:00 05/08/20 08:51 Lasix Tablet PO 40 mg DAILY LAMONTE Administration Glucagon 1 mg 05/02/20 18:35 Glucagon For Inj IM PRN PRN Hypoglycemia Protocol Glucose 15 gm 05/02/20 18:35 Glutose 15 PO PRN PRN Hypoglycemia Protocol Dextrose 1,000 mls @ 100 mls/hr 05/02/20 18:35 Dextrose 5% 1,000 Ml IVPB PRN PRN Hypoglycemia Protocol Insulin Aspart 4 - 8 units 05/03/20 08:00 05/08/20 12:24 Novolog SUB-Q Not Given TIDWM LAMONTE Protocol Insulin Aspart 8 units 05/03/20 12:00 05/08/20 12:24 Novolog SUB-Q 06/02
[2020-05-08 17:10] LABS: Glucose Point of Care 259 (65-105)
[2020-05-08] MEDS: INSULIN ASPART (*BKC) 100 UNITS/ML SUB-Q (17:34)
[2020-05-08] MEDS: INSULIN GLARGINE (*BKC) 100 UNITS/ML 10 UNITS SUB-Q (19:35)
[2020-05-08] MEDS: ATORVASTATIN 40 MG TABLET 80 MG BY MOUTH (20:44)
[2020-05-08 21:25] LABS: Glucose Point of Care 218 (65-105)
[2020-05-09] MEDS: LEVOTHYROXINE SODIUM 75 MCG TABLET PO (05:15)
[2020-05-09 06:00] VITALS: BP 139/66; PULSE 91; RESP 18; TEMP 35.5; O2SAT 100
[2020-05-09] MEDS: INSULIN ASPART (*BKC) 100 UNITS/ML 8 UNITS SUB-Q ×3 (07:21→18:26)
[2020-05-09 07:25] LABS: Glucose Point of Care 143 (65-105)
[2020-05-09] MEDS: ASPIRIN 81 MG ENTERIC TABLET PO (09:48)
[2020-05-09] MEDS: POLYSACCHARIDE IRON COMPLEX 150 MG CAPSULE PO ×2 (09:48→18:25)
[2020-05-09] MEDS: FUROSEMIDE 40 MG TABLET PO (09:49)
[2020-05-09] MEDS: VITAMIN B COMPLEX CAPSULE 1 CAP PO (09:49)
[2020-05-09 09:50] VITALS: PULSE 91
[2020-05-09] MEDS: carvediloL 25 MG TABLET BY MOUTH ×2 (09:50→18:25)
[2020-05-09] MEDS: AMIODARONE HCL 200 MG TABLET PO (09:50)
[2020-05-09] MEDS: SENNA/DOCUSATE SODIUM TABLET 2 TAB PO (09:50)
[2020-05-09] MEDS: LATANOPROST 0.005% OP SOLN 2.5 ML BTL 1 DROP EACH EYE (09:51)
[2020-05-09] MEDS: polyethylene glycoL 3350 17 GM POWD.PACK BY MOUTH (09:51)
[2020-05-09] MEDS: predniSONE 20 MG TABLET PO (09:51)
[2020-05-09 12:32] LABS: Glucose Point of Care 162 (65-105)
[2020-05-09 14:00] VITALS: BP 103/63; PULSE 96; RESP 16; TEMP 36.6; O2SAT 99
[2020-05-09 17:43] LABS: Glucose Point of Care 269 (65-105)
[2020-05-09 18:25] VITALS: PULSE 95
[2020-05-09] MEDS: INSULIN ASPART (*BKC) 100 UNITS/ML SUB-Q (18:26)
[2020-05-09] MEDS: INSULIN GLARGINE (*BKC) 100 UNITS/ML 10 UNITS SUB-Q (18:27)
[2020-05-09] MEDS: ATORVASTATIN 40 MG TABLET 80 MG BY MOUTH (20:21)
[2020-05-09 20:57] LABS: Glucose Point of Care 266 (65-105)
[2020-05-09 22:00] VITALS: BP 144/90; PULSE 96; RESP 18; TEMP 36.1; O2SAT 100
[2020-05-10] VITALS (8 sets, daily range): BP systolic 96–127; BP diastolic 62–72; PULSE 72–99; RESP 18–20; TEMP 36.1–36.7; O2SAT 98–100; BMI 52.8
[2020-05-10] MEDS: LACTULOSE 20 GM/30 ML UDC PO ×2 (04:22→20:26)
[2020-05-10] MEDS: LEVOTHYROXINE SODIUM 75 MCG TABLET PO (05:50)
[2020-05-10 05:55] LABS: Basophils Absolute Auto 0.1 K/mm3 (0.0-0.1); Basophils Percent Auto 0.8 % (0.2-1.2); Eosinophils Absolute Auto 0.2 K/mm3 (0-0.3); Hematocrit 29.8 % (37.0-47.0); Hemoglobin 9.2 g/dL (12.0-15.0); Immature Granulocyte Absolute 0.11 K/mm3 (0.00-0.031); Immature Granulocyte Percent A 1.3 % (0-0.5); Lymphocytes Absolute Auto 1.35 K/mm3 (0.9-3.2); Lymphocytes Percent Auto 16.2 % (18.3-44.2); Mean Corpuscular HGB Conc 30.9 g/dl (32-36); Mean Corpuscular Hemoglobin 31.8 pg (26-34); Mean Corpuscular Volume 103.1 fl (80-100); Mean Platelet Volume 11.6 fl (7.4-10.4); Monocytes Absolute Auto 0.8 K/mm3 (0.1-0.6); Monocytes Percent Auto 10.1 % (2.6-8.5); Neutrophils Absolute Auto 5.8 K/mm3 (1.3-6.7); Neutrophils Percent Auto 69.6 % (45.5-73.1); Nucleated Red Blood Cells Absolute Auto 0.1 K/mm3 (0.0-0.012); Nucleated Red Blood Cells Perc 1.6 % (0.0-0.2); Platelet Count Result 191 k/mm3 (150-375); Red Blood Count 2.89 M/mm3 (4.2-5.4); Red Cell Distribution Width 19.1 % (11.5-14.5); White Blood Count 8.3 K/mm3 (4.5-10.0)
[2020-05-10 06:05] LABS: Anion Gap 10.8 mmol/L (7-16); Blood Urea Nitrogen 36 mg/dL (7-17); Calcium 9.3 mg/dL (8.4-10.2); Carbon Dioxide 25 mmol/L (22-30); Chloride 104 mmol/L (98-107); Estimated CRCL calculation 73 ml/min; Estimated Glomerular Filt Rate > 60; Glucose 188 mg/dL (65-105); Potassium 3.8 mmol/L (3.4-5.0); Sodium 136 mmol/L (137-145)
[2020-05-10 07:02] LABS: Glucose Point of Care 194 (65-105)
[2020-05-10] MEDS: INSULIN ASPART (*BKC) 100 UNITS/ML 8 UNITS SUB-Q ×3 (08:49→17:49)
[2020-05-10] MEDS: SENNA/DOCUSATE SODIUM TABLET 2 TAB PO (08:50)
[2020-05-10] MEDS: VITAMIN B COMPLEX CAPSULE 1 CAP PO (08:50)
[2020-05-10] MEDS: ASPIRIN 81 MG ENTERIC TABLET PO (08:50)
[2020-05-10] MEDS: FUROSEMIDE 40 MG TABLET PO (08:50)
[2020-05-10] MEDS: predniSONE 20 MG TABLET PO (08:50)
[2020-05-10] MEDS: POLYSACCHARIDE IRON COMPLEX 150 MG CAPSULE PO ×2 (08:51→17:51)
[2020-05-10] MEDS: carvediloL 25 MG TABLET BY MOUTH ×3 (08:51→17:51)
[2020-05-10] MEDS: AMIODARONE HCL 200 MG TABLET PO (08:52)
[2020-05-10] MEDS: LATANOPROST 0.005% OP SOLN 2.5 ML BTL 1 DROP EACH EYE (08:53)
[2020-05-10] MEDS: polyethylene glycoL 3350 17 GM POWD.PACK BY MOUTH (08:53)
[2020-05-10 12:11] LABS: Glucose Point of Care 164 (65-105)
--- NOTE | 2020-05-10 12:18 | WPDNEURORHBP ---
Subjective Date/time seen: 05/10/20 12:18 Interval history: this 60-year-old is here after having had the repair for aortic dissection which was complicated by the respiratory and cardiac issues mentioned in my initial history and physical examination she continues to be concerned about the lower extremity edema with a negative venous Doppler overall she has improved however the concern is that she and incipient congestive heart failure or pulmonary infectious Yeyo I have requested a cardiology consult to look into for cardiologic status Review of Systems Review of Systems: All systems reviewed & are unremarkable except as noted in HPI and below Functional Status Ambulation Ability Ability to Ambulate 10 Feet: Independent Ability to Ambulate 50 Feet With 2 Turns: Independent Ability to Ambulate 150 Feet: Independent Ambulation Assistive Devices: Walker, Wheeled Transfers Ability Ability to Transfer In/Out of Chair: Independent Exam Const: General: comfortable and no acute distress HENMT: General nose exam: Normal nares present Mouth: Yes moist mucous membranes Eyes: General: appearance normal, both eyes and all related structures Neck: Neck: supple and no JVD Resp: Effort & Inspection: normal respiratory effort Auscultation: clear to auscultation bilaterally Cardio: Rate: regular rate Rhythm: regular rhythm GI: GI Palp: Yes Soft to palpation Auscultation: normal bowel sounds Skin: General skin exam: normal color and no rashes or lesions noted Neuro: Other: patient remains awake alert well oriented with normal speech and language function the lower extremity swelling is 3+ edema and the blisters are improving she is making progress in the rehab Extrem: Other: lower extremity edema question is whether not it is related to cardiac reasons like combined systolic and diastolic heart failure in the postoperative period after having had the repair for the aortic dissection Psych: Mental Status: mental status grossly normal Objective Data Vital Signs Vital Signs: Vital Signs - 24 hr 05/09/20 14:00 05/09/20 18:25 05/09/20 22:00 Temperature 36.6 C 36.1 C L Pulse Rate 96 95 96 Respiratory Rate 16 18 Blood Pressure 103/63 144/90 H Pulse Oximetry 99 100 05/10/20 06:00 05/10/20 08:51 05/10/20 08:52 Temperature 36.1 C L Pulse Rate 93 93 93 Respiratory Rate 18 Blood Pressure 96/62 L Pulse Oximetry 100 Intake/Output Intake/Output: Intake & Output 0705/08/20 05/09/20 05/10/20 23:59 23:59 23:59 23:59 Intake Total 1440 720 840 360 Balance 1440 720 840 360 Meds/Results Medications: Active Medications Generic Name Dose Route Start Last Admin Trade Name Freq PRN Reason Stop Dose Admin Acetaminophen 500 mg 05/02/20 17:25 05/08/20 01:48 Tylenol Tablet PO 500 mg Q6H PRN Administration Pain 1-3 Amiodarone HCl 200 mg 05/03/20 09:00 05/10/20 08:52 Pacerone PO 200 mg DAILY LAMONTE Administration Artificial Tears 2 drop 05/02/20 17:25 Artificial Tears EACH EYE TID PRN dry eyes Aspirin 81 mg 05/03/20 09:00 05/10/20 08:50 Aspirin Ec PO 81 mg DAILY LAMONTE Administration Atorvastatin Calcium 80 mg 05/02/20 21:00 05/09/20 20:21 Lipitor BY MOUTH 06/01/20 21:01 80 mg HS LAMONTE Administration Bisacodyl 10 mg 05/02/20 17:25 Dulcolax Suppository RECTAL DAILY PRN Constipation Carvedilol 25 mg 05/02/20 17:40 05/10/20 08:51 Coreg BY MOUTH 25 mg TID LAMONTE Administration Dextrose 12.5 gm 05/02/20 18:35 Dextrose 50% Syringe IV PUSH PRN PRN Hypoglycemia Protocol Furosemide 40 mg 05/03/20 09:00 05/10/20 08:50 Lasix Tablet PO 40 mg DAILY LAMONTE Administration Glucagon 1 mg 05/02/20 18:35 Glucagon For Inj IM PRN PRN Hypoglycemia Protocol Glucose 15 gm 05/02/20 18:35 Glutose 15 PO PRN PRN Hypoglycemia Protocol Dextrose 1,000 mls @ 100 mls
--- NOTE | 2020-05-10 15:18 | PM.CNCAR ---
Assessment and Plan Additional Plan 60-year-old lady with chronic lower extremity edema which is likely related to obesity, venous insufficiency and chronic steroid exposure. She is not known to have significant left ventricular dysfunction and echocardiogram from the esophagus at [facility] did not demonstrate any evidence of this. Her renal function is reasonably good to based on lab data we have here. I am going to recommend advancing the dose of her furosemide at least for the short term to 80 mg daily. I am going to recommend cutting her steroid dose in half to 10 mg of prednisone daily. 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 Will see the patient on Wednesday after this coming weekend to assess the extent of this edema although as she indicated clearly this has been a chronic problem for her and I do not believe this needs to be or can be resolved prior to discharge on the . Jacob Benjamin MD [facility] History of Present Illness History of Present Illness Consult date/time: Date of service:05/10/20 15:18 Reason For Visit: aortic dissection Narrative: This is a 60-year-old lady that I am seeing at the request of the rehab physicians because of lower extremity edema that is concerning. The patient has been on the rehab service now for 8 days and is here recovering from and extensive operation to provide surgical treatment for a type a aortic dissection that was treated at [facility] in the end of March. According to the chart she had a fall and was seen by her physician in [place] [facility] since somewhere in the [facility]. She apparently was sent to emergency room where she was evaluated and found to have an acute type a dissection of the aorta. Prior to this apparently she has a history of coronary artery disease suffering a small non ST elevation ND which was evaluated at [facility] in November of this year. Those records are not available to my review review but the notes from [facility] indicates she was found to have some small vessel disease for which medical treatment was recommended. Records from [facility] indicate that she has transesophageal echo prior to surgery and after surgery demonstrating hyperdynamic left and right ventricular systolic function. She received a bio Bentall operation and a 25 mm aortic valve bioprosthesis. There was apparently some atrial fibrillation complicating her surgical recovery for which she is taking amiodarone at a modest dose of 200 mg per day. The patient states that she has had significant lower extremity edema for a long time predating this admission. She can't really tell me what her physicians have indicated as to the reason for this although she is obviously morbidly obese with a BMI of 54. Her lab data does not show any evidence of significant renal insufficiency. Once again she is known to have normal, hypo hyperdynamic looking left ventricular and right ventricular systolic function. She is taking chronic dose of prednisone which I spoke to her about at some length. She states that she was placed on prednisone by her PCP about a year ago for treatment of pain related to shingles that was occurring around her eye. She does not know of any other chronic reason that she needs to be on steroids. The remainder of her medical regimen includes aspirin, atorvastatin, carvedilol insulin levothyroxine. She is not reporting any symptoms of orthopnea or PND she has no symptoms of ischemic chest pain. The patient is on rehab as stated above for about 8 days now her anticipated date of discharge is 4 days from now. Follow-up is scheduled after discharge from rehab with her physicians at [facility]. Review of Systems Constitutional: Constitutional: Reports no additional constitutional complaints Eyes: Eyes: Reports no additional eye complaints ENT: Reports sy
[2020-05-10] MEDS: INSULIN ASPART (*BKC) 100 UNITS/ML SUB-Q (17:48)
[2020-05-10 18:17] LABS: Glucose Point of Care 270 (65-105)
[2020-05-10] MEDS: INSULIN GLARGINE (*BKC) 100 UNITS/ML 10 UNITS SUB-Q (18:25)
[2020-05-10] MEDS: ATORVASTATIN 40 MG TABLET 80 MG BY MOUTH (20:27)
[2020-05-10 20:46] LABS: Glucose Point of Care 268 (65-105)
[2020-05-11] VITALS (7 sets, daily range): BP systolic 105–114; BP diastolic 68–76; PULSE 76–99; RESP 18–19; TEMP 36.3–36.5; O2SAT 98–100
[2020-05-11 05:07] LABS: Anion Gap 8.9 mmol/L (7-16); Blood Urea Nitrogen 33 mg/dL (7-17); Carbon Dioxide 28 mmol/L (22-30); Chloride 104 mmol/L (98-107); Estimated CRCL calculation 74 ml/min; Estimated Glomerular Filt Rate > 60; Glucose 203 mg/dL (65-105); Magnesium 2.1 mg/dL (1.6-2.3); Potassium 3.9 mmol/L (3.4-5.0); Sodium 137 mmol/L (137-145)
[2020-05-11] MEDS: LEVOTHYROXINE SODIUM 75 MCG TABLET PO (05:49)
[2020-05-11 06:56] LABS: Glucose Point of Care 180 (65-105)
[2020-05-11] MEDS: POLYSACCHARIDE IRON COMPLEX 150 MG CAPSULE PO ×2 (08:46→17:08)
[2020-05-11] MEDS: AMIODARONE HCL 200 MG TABLET PO (08:47)
[2020-05-11] MEDS: carvediloL 25 MG TABLET BY MOUTH ×3 (08:48→17:08)
[2020-05-11] MEDS: ASPIRIN 81 MG ENTERIC TABLET PO (08:48)
[2020-05-11] MEDS: FUROSEMIDE 80 MG TABLET PO (08:49)
[2020-05-11] MEDS: SENNA/DOCUSATE SODIUM TABLET 2 TAB PO (08:49)
[2020-05-11] MEDS: polyethylene glycoL 3350 17 GM POWD.PACK BY MOUTH (08:49)
[2020-05-11] MEDS: VITAMIN B COMPLEX CAPSULE 1 CAP PO (08:50)
[2020-05-11] MEDS: predniSONE 10 MG TABLET PO (08:50)
[2020-05-11] MEDS: INSULIN ASPART (*BKC) 100 UNITS/ML 8 UNITS SUB-Q ×3 (08:54→17:10)
[2020-05-11] MEDS: LATANOPROST 0.005% OP SOLN 2.5 ML BTL 1 DROP EACH EYE (08:55)
[2020-05-11 12:42] LABS: Glucose Point of Care 194 (65-105)
--- NOTE | 2020-05-11 16:49 | WPDNEURORHBP ---
Subjective Date/time seen: 05/11/20 16:49 Interval history: this 60-year-old woman is here after having had surgery for aortic dissection the cardiology has seen the patient the notes were reviewed and adjustment in his medications have been made appropriately she denies any headache nausea vomiting chest pain shortness of breath fever chills sore throat Review of Systems Review of Systems: All systems reviewed & are unremarkable except as noted in HPI and below Functional Status Ambulation Ability Ability to Ambulate 10 Feet: Independent Ability to Ambulate 50 Feet With 2 Turns: Independent Ability to Ambulate 150 Feet: Independent Ambulation Assistive Devices: Walker, Wheeled Transfers Ability Ability to Transfer In/Out of Chair: Independent Exam Const: General: comfortable and no acute distress HENMT: General nose exam: Normal nares present Mouth: Yes moist mucous membranes Eyes: General: appearance normal, both eyes and all related structures Neck: Neck: supple and no JVD Resp: Effort & Inspection: normal respiratory effort Auscultation: clear to auscultation bilaterally Cardio: Rate: regular rate Rhythm: regular rhythm GI: GI Palp: Yes Soft to palpation Auscultation: normal bowel sounds Skin: General skin exam: normal color and no rashes or lesions noted Neuro: Other: patient is awake alert well oriented doing fairly well as for the strength is concerned and walking quite a bit of course with the assistance Extrem: General: normal to inspection Psych: Mental Status: mental status grossly normal Objective Data Vital Signs Vital Signs: Vital Signs - 24 hr 05/11/20 17:08 05/11/20 22:00 05/12/20 06:00 Temperature 36.3 C L 36.4 C Pulse Rate 76 99 84 Respiratory Rate 18 19 Blood Pressure 105/76 113/65 Pulse Oximetry 99 99 05/12/20 09:05 05/12/20 09:07 05/12/20 12:12 Temperature Pulse Rate 82 84 84 Respiratory Rate 18 Blood Pressure Pulse Oximetry 99 05/12/20 14:00 05/12/20 14:17 05/12/20 16:11 Temperature 36.4 C 36.4 C Pulse Rate 90 88 Respiratory Rate 19 Blood Pressure 149/69 H Pulse Oximetry 99 Intake/Output Intake/Output: Intake & Output 05/09/20 05/10/20 05/11/20 05/12/20 23:59 23:59 23:59 23:59 Intake Total 840 840 600 600 Balance 840 840 600 600 Meds/Results Medications: Active Medications Generic Name Dose Route Start Last Admin Trade Name Rosa PRN Reason Stop Dose Admin Acetaminophen 500 mg 05/02/20 17:25 05/12/20 14:17 Tylenol Tablet PO 500 mg Q6H PRN Administration Pain 1-3 Amiodarone HCl 200 mg 05/03/20 09:00 05/12/20 09:07 Pacerone PO 200 mg DAILY LAMONTE Administration Artificial Tears 2 drop 05/02/20 17:25 Artificial Tears EACH EYE TID PRN dry eyes Aspirin 81 mg 05/03/20 09:00 05/12/20 09:07 Aspirin Ec PO 81 mg DAILY LAMONTE Administration Atorvastatin Calcium 80 mg 05/02/20 21:00 05/11/20 21:10 Lipitor BY MOUTH 06/01/20 21:01 80 mg HS LAMONTE Administration Bisacodyl 10 mg 05/02/20 17:25 Dulcolax Suppository RECTAL DAILY PRN Constipation Carvedilol 25 mg 05/02/20 17:40 05/12/20 16:11 Coreg BY MOUTH 25 mg TID LAMONTE Administration Dextrose 12.5 gm 05/02/20 18:35 Dextrose 50% Syringe IV PUSH PRN PRN Hypoglycemia Protocol Furosemide 80 mg 05/11/20 09:00 05/12/20 09:07 Lasix Tablet PO 80 mg DAILY LAMONTE Administration Glucagon 1 mg 05/02/20 18:35 Glucagon For Inj IM PRN PRN Hypoglycemia Protocol Glucose 15 gm 05/02/20 18:35 Glutose 15 PO PRN PRN Hypoglycemia Protocol Dextrose 1,000 mls @ 100 mls/hr 05/02/20 18:35 Dextrose 5% 1,000 Ml IVPB PRN PRN Hypoglycemia Protocol Insulin Aspart 4 - 8 units 05/03/20 08:00 05/12/20 12:15 Novolog SUB-Q Not Given TIDWM LAMONTE Protocol Insulin Aspart 8 units 05/03/20 12:00 05/12/20 12:12 Nov
[2020-05-11] MEDS: INSULIN ASPART (*BKC) 100 UNITS/ML SUB-Q (17:09)
[2020-05-11 17:36] LABS: Glucose Point of Care 231 (65-105)
[2020-05-11] MEDS: INSULIN GLARGINE (*BKC) 100 UNITS/ML 10 UNITS SUB-Q (17:38)
[2020-05-11 20:20] LABS: Glucose Point of Care 202 (65-105)
[2020-05-11] MEDS: ATORVASTATIN 40 MG TABLET 80 MG BY MOUTH (21:10)
[2020-05-12] VITALS (8 sets, daily range): BP systolic 113–149; BP diastolic 65–69; PULSE 82–90; RESP 18–20; TEMP 36.4–36.5; O2SAT 96–99; BMI 11.0; BMI 10.0
[2020-05-12] MEDS: ACETAMINOPHEN 500 MG TABLET PO ×2 (00:25→14:17)
[2020-05-12 05:51] LABS: Anion Gap 8.5 mmol/L (7-16); Blood Urea Nitrogen 32 mg/dL (7-17); Carbon Dioxide 28 mmol/L (22-30); Chloride 103 mmol/L (98-107); Estimated CRCL calculation 74 ml/min; Estimated Glomerular Filt Rate > 60; Glucose 139 mg/dL (65-105); Potassium 3.5 mmol/L (3.4-5.0); Sodium 136 mmol/L (137-145)
[2020-05-12] MEDS: LEVOTHYROXINE SODIUM 75 MCG TABLET PO (06:17)
[2020-05-12 06:48] LABS: Glucose Point of Care 131 (65-105)
[2020-05-12] MEDS: INSULIN ASPART (*BKC) 100 UNITS/ML 8 UNITS SUB-Q ×3 (09:05→17:26)
[2020-05-12] MEDS: POLYSACCHARIDE IRON COMPLEX 150 MG CAPSULE PO ×2 (09:06→16:12)
[2020-05-12] MEDS: AMIODARONE HCL 200 MG TABLET PO (09:07)
[2020-05-12] MEDS: carvediloL 25 MG TABLET BY MOUTH ×3 (09:07→16:11)
[2020-05-12] MEDS: SENNA/DOCUSATE SODIUM TABLET 2 TAB PO (09:07)
[2020-05-12] MEDS: ASPIRIN 81 MG ENTERIC TABLET PO (09:07)
[2020-05-12] MEDS: FUROSEMIDE 80 MG TABLET PO (09:07)
[2020-05-12] MEDS: polyethylene glycoL 3350 17 GM POWD.PACK BY MOUTH (09:08)
[2020-05-12] MEDS: LATANOPROST 0.005% OP SOLN 2.5 ML BTL 1 DROP EACH EYE (09:08)
[2020-05-12] MEDS: VITAMIN B COMPLEX CAPSULE 1 CAP PO (09:08)
[2020-05-12] MEDS: predniSONE 10 MG TABLET PO (09:08)
[2020-05-12 12:11] LABS: Glucose Point of Care 179 (65-105)
[2020-05-12 16:55] LABS: Glucose Point of Care 202 (65-105)
[2020-05-12] MEDS: INSULIN ASPART (*BKC) 100 UNITS/ML SUB-Q (17:26)
[2020-05-12] MEDS: INSULIN GLARGINE (*BKC) 100 UNITS/ML 10 UNITS SUB-Q (17:27)
--- NOTE | 2020-05-12 18:35 | WPDNEURORHBP ---
Subjective Date/time seen: 05/12/20 18:35 Interval history: this patient is pleasant 60-year-old is here after having had surgery for aortic dissection she is doing fairly well denies any headache nausea chest pain shortness of breath fever chills and working with rehab making progress Review of Systems Review of Systems: All systems reviewed & are unremarkable except as noted in HPI and below Functional Status Ambulation Ability Ability to Ambulate 10 Feet: Independent Ability to Ambulate 50 Feet With 2 Turns: Independent Ability to Ambulate 150 Feet: Independent Ambulation Assistive Devices: Walker, Wheeled Transfers Ability Ability to Transfer In/Out of Chair: Independent Exam Const: General: comfortable and no acute distress HENMT: General nose exam: Normal nares present Mouth: Yes moist mucous membranes Eyes: General: appearance normal, both eyes and all related structures Neck: Neck: supple and no JVD Resp: Effort & Inspection: normal respiratory effort Auscultation: clear to auscultation bilaterally Cardio: Rate: regular rate Rhythm: regular rhythm GI: GI Palp: Yes Soft to palpation Auscultation: normal bowel sounds Skin: General skin exam: normal color and no rashes or lesions noted Neuro: Other: patient remains awake alert well oriented time place and person has normal speech and language function and making progress in the rehab for his generalized weakness Extrem: Other: the blister over the right leg have been healing fairly well and swelling of the legs is have a better or stable Psych: Mental Status: mental status grossly normal Objective Data Vital Signs Vital Signs: Vital Signs - 24 hr 05/11/20 22:00 05/12/20 06:00 05/12/20 09:05 Temperature 36.3 C L 36.4 C Pulse Rate 99 84 82 Respiratory Rate 18 19 18 Blood Pressure 105/76 113/65 Pulse Oximetry 99 99 99 05/12/20 09:07 05/12/20 12:12 05/12/20 14:00 Temperature 36.4 C Pulse Rate 84 84 90 Respiratory Rate 19 Blood Pressure 149/69 H Pulse Oximetry 99 05/12/20 14:17 05/12/20 16:11 Temperature 36.4 C Pulse Rate 88 Respiratory Rate Blood Pressure Pulse Oximetry Intake/Output Intake/Output: Intake & Output 05/09/20 05/10/20 05/11/20 05/12/20 23:59 23:59 23:59 23:59 Intake Total 840 840 600 840 Balance 840 840 600 840 Meds/Results Medications: Active Medications Generic Name Dose Route Start Last Admin Trade Name Rosa PRN Reason Stop Dose Admin Acetaminophen 500 mg 05/02/20 17:25 05/12/20 14:17 Tylenol Tablet PO 500 mg Q6H PRN Administration Pain 1-3 Amiodarone HCl 200 mg 05/03/20 09:00 05/12/20 09:07 Pacerone PO 200 mg DAILY LAMONTE Administration Artificial Tears 2 drop 05/02/20 17:25 Artificial Tears EACH EYE TID PRN dry eyes Aspirin 81 mg 05/03/20 09:00 05/12/20 09:07 Aspirin Ec PO 81 mg DAILY LAMONTE Administration Atorvastatin Calcium 80 mg 05/02/20 21:00 05/11/20 21:10 Lipitor BY MOUTH 06/01/20 21:01 80 mg HS LAMONTE Administration Bisacodyl 10 mg 05/02/20 17:25 Dulcolax Suppository RECTAL DAILY PRN Constipation Carvedilol 25 mg 05/02/20 17:40 05/12/20 16:11 Coreg BY MOUTH 25 mg TID LAMONTE Administration Dextrose 12.5 gm 05/02/20 18:35 Dextrose 50% Syringe IV PUSH PRN PRN Hypoglycemia Protocol Furosemide 80 mg 05/11/20 09:00 05/12/20 09:07 Lasix Tablet PO 80 mg DAILY LAMONTE Administration Glucagon 1 mg 05/02/20 18:35 Glucagon For Inj IM PRN PRN Hypoglycemia Protocol Glucose 15 gm 05/02/20 18:35 Glutose 15 PO PRN PRN Hypoglycemia Protocol Dextrose 1,000 mls @ 100 mls/hr 05/02/20 18:35 Dextrose 5% 1,000 Ml IVPB PRN PRN Hypoglycemia Protocol Insulin Aspart 4 - 8 units 05/03/20 08:00 05/12/20 17:26 Novolog SUB-Q 4 units TIDWM LAMONTE Administration Protocol Insulin Aspart 8 units 04/17
[2020-05-12] MEDS: ATORVASTATIN 40 MG TABLET 80 MG BY MOUTH (20:13)
[2020-05-12 20:17] LABS: Glucose Point of Care 243 (65-105)
[2020-05-13] VITALS (7 sets, daily range): BP systolic 94–123; BP diastolic 61–68; PULSE 84–98; RESP 20; TEMP 36.2–36.7; O2SAT 98–99
[2020-05-13 05:24] LABS: Blood Urea Nitrogen 34 mg/dL (7-17); Calcium 8.8 mg/dL (8.4-10.2); Carbon Dioxide 23 mmol/L (22-30); Chloride 103 mmol/L (98-107); Estimated CRCL calculation 74 ml/min; Estimated Glomerular Filt Rate > 60; Glucose 161 mg/dL (65-105); Sodium 133 mmol/L (137-145)
[2020-05-13] MEDS: LEVOTHYROXINE SODIUM 75 MCG TABLET PO (06:14)
[2020-05-13 06:21] LABS: Glucose Point of Care 156 (65-105)
[2020-05-13] MEDS: INSULIN ASPART (*BKC) 100 UNITS/ML 8 UNITS SUB-Q ×3 (07:54→18:25)
[2020-05-13] MEDS: POLYSACCHARIDE IRON COMPLEX 150 MG CAPSULE PO ×2 (08:16→16:35)
[2020-05-13] MEDS: ASPIRIN 81 MG ENTERIC TABLET PO (08:16)
[2020-05-13] MEDS: AMIODARONE HCL 200 MG TABLET PO (08:16)
[2020-05-13] MEDS: carvediloL 25 MG TABLET BY MOUTH ×3 (08:17→16:36)
[2020-05-13] MEDS: polyethylene glycoL 3350 17 GM POWD.PACK BY MOUTH (08:17)
[2020-05-13] MEDS: VITAMIN B COMPLEX CAPSULE 1 CAP PO (08:17)
[2020-05-13] MEDS: FUROSEMIDE 80 MG TABLET PO (08:17)
[2020-05-13] MEDS: SENNA/DOCUSATE SODIUM TABLET 2 TAB PO (08:17)
[2020-05-13] MEDS: predniSONE 10 MG TABLET PO (08:17)
[2020-05-13] MEDS: LATANOPROST 0.005% OP SOLN 2.5 ML BTL 1 DROP EACH EYE (08:18)
--- NOTE | 2020-05-13 10:41 | PM.PNCARD ---
Progress Note: A&P Assessment and Plan (1) Lower extremity edema: Code(s): R60.0 - Localized edema Status: Acute Assessment and Plan: Chronic lower extremity edema likely related to obesity, venous insufficiency and chronic steroid exposure. She is not known to have significant left ventricular dysfunction and echocardiogram from the esophagus at [place] did not demonstrate any evidence of this. Prednisone was decreased to 10 mg daily on Wednesday. Dr. Benjamin felt it should be our intention to discontinue prednisone in the near future since she should not to have to take this for the longterm because of varicella zoster. Continue at 10 mg daily for 1 week then stop. She does not feel that there has been significant decrease in her edema over the weekend. She felt that the Curt wraps were torture. She is able to keep her legs elevated for the most part but when they begin to throb she feels that she most lower them. She is urinating frequently. Renal function has been stable over the weekend. Continue furosemide 80 mg daily. Continue to try to elevate her legs as much as possible. BMP in the morning. Her lower extremity edema has been a chronic problem for her. This does not need to be or can it be resolved prior to discharge tomorrow. Additional Plan Plan discussed with Dr. Benjamin 111 05/13/2020 Time Spent With Patient Time with patient: less than 15 minutes Subjective Date/time seen: 05/13/20 10:41 Interval history: Follow-up for: surgery for aortic dissection , lower extremity edema Date of service: 05/13/2020 Subjective: Incisional chest discomfort. Legs feel tight and are throbbing. Unable to be use the Curt wraps. Legs are dependent when it becomes uncomfortable to keep them elevated. Denied shortness of breath. No lightheadedness. Review of Systems Constitutional: Constitutional: Reports weakness ( Generalized) Eyes: Eyes: Denies blurry vision ENT: Reports Normal hearing present and Denies epistaxis Cardiovascular: Cardiovascular: Denies chest pain, Reports pedal edema and Denies dyspnea Respiratory: Respiratory: Denies cough and Denies dyspnea Gastrointestinal: Gastrointestinal: Denies abdominal pain Genitourinary: Genitourinary: Reports nocturia ( related to diuretics) Musculoskeletal: Comments: Legs throbbing Integumentary/Breasts: Skin/Breast: Denies rash Neurologic: Reports Normal hearing present and Denies dizziness Psychiatric: Psychiatric: Reports abnormal sleep pattern and Denies anxiety Exam Const: General: comfortable and no acute distress Other: Very pleasant obese black female returning to the the bedside chair from the bathroom. No distress. HENMT: Mouth: Yes moist mucous membranes Eyes: Sclera: sclerae normal Pupils: Equal, round and reactive pupils present Neck: Neck: supple Resp: Effort & Inspection: normal respiratory effort Auscultation: clear to auscultation bilaterally Cardio: Rate: regular rate Rhythm: regular rhythm Other: very soft systolic murmur audible at the base. No audible aortic regurgitation GI: Inspection: Pannus present Auscultation: normal bowel sounds Skin: General skin exam: normal color Neuro: Cranial nerves: Yes Equal, round and reactive pupils present Cognition (Neuro): normal cognition Extrem: Other: Marked chronic lower extremity edema with some weeping right calf Objective Data Vital Signs Vital Signs: Vital Signs - 24 hr 05/12/20 12:12 05/12/20 14:00 05/12/20 14:17 Temperature 36.4 C 36.4 C Pulse Rate 84 90 Respiratory Rate 19 Blood Pressure 149/69 H Pulse Oximetry 99 05/12/20 16:11 05/12/20 21:23 05/13/20 05:47 Temperature 36.5 C 36.4 C L Pulse Rate 88 90 95 Respiratory Rate 20 20 Blood Pressure 94/61 L Pulse Oximetry 96 99 05/13/20 08:16 05/13/20 08:17 Temperature Pulse Rate 95 95 Respiratory Rate Blood Press
[2020-05-13 12:29] LABS: Glucose Point of Care 183 (65-105)
[2020-05-13 17:05] LABS: Glucose Point of Care 232 (65-105)
[2020-05-13] MEDS: INSULIN ASPART (*BKC) 100 UNITS/ML SUB-Q (18:24)
[2020-05-13] MEDS: INSULIN GLARGINE (*BKC) 100 UNITS/ML 10 UNITS SUB-Q (18:26)
[2020-05-13] MEDS: ATORVASTATIN 40 MG TABLET 80 MG BY MOUTH (20:01)
[2020-05-13 20:55] LABS: Glucose Point of Care 206 (65-105)
[2020-05-14] MEDS: LEVOTHYROXINE SODIUM 75 MCG TABLET PO (05:57)
[2020-05-14 06:00] VITALS: BP 100/55; PULSE 96; RESP 18; TEMP 36.3; O2SAT 100
[2020-05-14 06:27] LABS: Glucose Point of Care 119 (65-105)
[2020-05-14] MEDS: INSULIN ASPART (*BKC) 100 UNITS/ML 8 UNITS SUB-Q ×2 (08:03→12:33)
[2020-05-14] MEDS: POLYSACCHARIDE IRON COMPLEX 150 MG CAPSULE PO (08:05)
[2020-05-14 08:08] VITALS: PULSE 96
[2020-05-14] MEDS: AMIODARONE HCL 200 MG TABLET PO (08:08)
[2020-05-14] MEDS: carvediloL 25 MG TABLET BY MOUTH ×2 (08:08→14:39)
[2020-05-14] MEDS: ASPIRIN 81 MG ENTERIC TABLET PO (08:08)
[2020-05-14] MEDS: SENNA/DOCUSATE SODIUM TABLET 2 TAB PO (08:09)
[2020-05-14] MEDS: predniSONE 10 MG TABLET PO (08:09)
[2020-05-14] MEDS: FUROSEMIDE 80 MG TABLET PO (08:09)
[2020-05-14] MEDS: polyethylene glycoL 3350 17 GM POWD.PACK BY MOUTH (08:09)
[2020-05-14] MEDS: VITAMIN B COMPLEX CAPSULE 1 CAP PO (08:09)
[2020-05-14] MEDS: LATANOPROST 0.005% OP SOLN 2.5 ML BTL 1 DROP EACH EYE (08:10)
[2020-05-14] MEDS: ACETAMINOPHEN 500 MG TABLET PO (08:24)
--- NOTE | 2020-05-14 11:13 | WPDNEURORHBP ---
Subjective Date/time seen: 05/14/20 11:13 Interval history: This 60-year-old over 78 woman is here because of post surgery aortic dissection cardiology has seen him increased her Lasix to reduce the team of the legs she denies any headache nausea vomiting chest pain shortness of breath fever chills sore throat she is ready to be discharged today to home with home health to follow in follow-up with the surgeons follow-up with cardiology and follow-up with the primary care physician Review of Systems Review of Systems: All systems reviewed & are unremarkable except as noted in HPI and below Functional Status Ambulation Ability Ability to Ambulate 10 Feet: Independent Ability to Ambulate 50 Feet With 2 Turns: Independent Ability to Ambulate 150 Feet: Independent Ambulation Assistive Devices: Walker, Wheeled Transfers Ability Ability to Transfer In/Out of Chair: Independent Exam Const: General: comfortable and no acute distress HENMT: General nose exam: Normal nares present Mouth: Yes moist mucous membranes Eyes: General: appearance normal, both eyes and all related structures Neck: Neck: supple and no JVD Chest: Other: the incision from the surgery on her aortic dissection is clean and in healing process Resp: Effort & Inspection: normal respiratory effort Auscultation: clear to auscultation bilaterally Cardio: Rate: regular rate Rhythm: regular rhythm GI: GI Palp: Yes Soft to palpation Auscultation: normal bowel sounds Skin: General skin exam: normal color and no rashes or lesions noted Neuro: Other: patient remains awake alert well oriented with improved ability to participate in the therapy and doing very well Extrem: Other: slightly less edema the lower extremity Psych: Mental Status: mental status grossly normal Objective Data Vital Signs Vital Signs: Vital Signs - 24 hr 05/13/20 12:09 05/13/20 14:00 05/13/20 16:36 Temperature 36.2 C L Pulse Rate 88 95 84 Respiratory Rate 20 Blood Pressure 122/68 Pulse Oximetry 98 05/13/20 22:00 05/14/20 06:00 05/14/20 08:08 Temperature 36.7 C 36.3 C L Pulse Rate 98 96 96 Respiratory Rate 20 18 Blood Pressure 123/67 100/55 L Pulse Oximetry 98 100 Intake/Output Intake/Output: Intake & Output 05/11/20 05/12/20 05/13/20 05/14/20 23:59 23:59 23:59 23:59 Intake Total 600 840 720 360 Balance 600 840 720 360 Meds/Results Medications: Active Medications Generic Name Dose Route Start Last Admin Trade Name Rosa PRN Reason Stop Dose Admin Acetaminophen 500 mg 05/02/20 17:25 05/14/20 08:24 Tylenol Tablet PO 500 mg Q6H PRN Administration Pain 1-3 Amiodarone HCl 200 mg 05/03/20 09:00 05/14/20 08:08 Pacerone PO 200 mg DAILY LAMONTE Administration Artificial Tears 2 drop 05/02/20 17:25 Artificial Tears EACH EYE TID PRN dry eyes Aspirin 81 mg 05/03/20 09:00 05/14/20 08:08 Aspirin Ec PO 81 mg DAILY LAMONTE Administration Atorvastatin Calcium 80 mg 05/02/20 21:00 05/13/20 20:01 Lipitor BY MOUTH 06/01/20 21:01 80 mg HS LAMONTE Administration Bisacodyl 10 mg 05/02/20 17:25 Dulcolax Suppository RECTAL DAILY PRN Constipation Carvedilol 25 mg 05/02/20 17:40 05/14/20 08:08 Coreg BY MOUTH 25 mg TID LAMONTE Administration Dextrose 12.5 gm 05/02/20 18:35 Dextrose 50% Syringe IV PUSH PRN PRN Hypoglycemia Protocol Furosemide 80 mg 05/11/20 09:00 05/14/20 08:09 Lasix Tablet PO 80 mg DAILY LAMONTE Administration Glucagon 1 mg 05/02/20 18:35 Glucagon For Inj IM PRN PRN Hypoglycemia Protocol Glucose 15 gm 05/02/20 18:35 Glutose 15 PO PRN PRN Hypoglycemia Protocol Dextrose 1,000 mls @ 100 mls/hr 05/02/20 18:35 Dextrose 5% 1,000 Ml IVPB PRN PRN Hypoglycemia Protocol Insulin Aspart 4 - 8 units 05/03/20 08:00 05/14/20 08:04 Novolog SUB-Q Not Given TIDWM LAMONTE Pro
--- NOTE | 2020-05-14 11:45 | PM.PNCARD ---
Progress Note: A&P Assessment and Plan (1) Lower extremity edema: Code(s): R60.0 - Localized edema Status: Acute Assessment and Plan: Chronic lower extremity edema likely related to obesity, venous insufficiency and chronic steroid exposure. She is not known to have significant left ventricular dysfunction and echocardiogram from the esophagus at [facility] did not demonstrate any evidence of this. Prednisone was decreased to 10 mg daily on Wednesday. Continue prednisone at 10 mg through WednesdayMay 17 Then stop. Legs feel little softer today. Continue furosemide at 80 mg daily for 1 week then decrease to 40 mg daily. BMP in 1 week with results to go to her primary care provider. Additional Plan See discharge instructions. She will follow-up with all of the physicians that took care of her at [facility]. Plan discussed with Dr Guajardo 1150 05/14/2020 Subjective Date/time seen: 05/14/20 11:45 Interval history: Follow-up for: surgery for aortic dissection , lower extremity edema Date of service: 05/14/2020 Subjective: Incisional chest discomfort. Denied shortness of breath or lightheadedness. 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 Notes a pain that starts in her head when she first wakes up or when she eats a meal. The pain circles her head and goes into her shoulders. Review of Systems Constitutional: Constitutional: Reports weakness ( Generalized Improving) Eyes: Eyes: Denies blurry vision ENT: Reports Normal hearing present, Denies dizziness and Denies epistaxis Cardiovascular: Cardiovascular: Denies chest pain, Reports pedal edema, Reports leg edema and Denies dyspnea Respiratory: Respiratory: Denies cough and Denies dyspnea Gastrointestinal: Gastrointestinal: Denies abdominal pain, Reports constipation, Denies nausea and Denies vomiting Genitourinary: Genitourinary: Reports nocturia ( related to diuretics) Musculoskeletal: Musculoskeletal: Reports as per HPI Integumentary/Breasts: Skin/Breast: Denies rash Neurologic: Reports as per HPI, Reports Normal hearing present, Denies dizziness and Reports weakness ( Generalized) Psychiatric: Psychiatric: Reports abnormal sleep pattern and Denies anxiety Hematologic/Lymphatic: Hematologic/Lymphatic: Reports no additional hematologic/lymphatic complaints Allergic/Immunologic: Allergic/Immunologic: Reports no additional allergic/immunologic complaints Exam Const: General: comfortable and no acute distress Other: In chair. Packing up belongings to go home. HENMT: Mouth: Yes moist mucous membranes Eyes: Sclera: sclerae normal Pupils: Equal, round and reactive pupils present Neck: Neck: supple Other: no ability to discern JVD given body habitus Resp: Effort & Inspection: normal respiratory effort and able to speak in complete sentences Auscultation: clear to auscultation bilaterally Cardio: Rate: regular rate Other: very soft systolic murmur audible at the base. No audible aortic regurgitation GI: Inspection: Pannus present Auscultation: normal bowel sounds Skin: General skin exam: normal color Neuro: Cranial nerves: Yes Equal, round and reactive pupils present and Yes Normal hearing present Cognition (Neuro): normal cognition Extrem: Other: Marked chronic lower extremity edema with some weeping right calf Psych: Appearance: grossly normal Mental Status: mental status grossly normal Speech and movement: Normal speech and movement present Affect: normal affect Attitude: cooperative Objective Data Vital Signs Vital Signs: Vital Signs - 24 hr 05/13/20 12:09 05/13/20 14:00 05/13/20 16:36 Temperature 36.2 C L Pulse Rate 88 95 84 Respiratory Rate 20 Blood Pressure 122/68 Pulse Oximetry 98 05/13/20 22:00 05/14/20 06:00 05/14/20 08:08 Temperature 36.7 C 36.3 C L Pulse Rate 98 96 96 Respiratory Rate 20 18 Blood P
[2020-05-14 12:26] LABS: Glucose Point of Care 135 (65-105)
[2020-05-14 14:00] VITALS: BP 132/72; PULSE 98; RESP 20; TEMP 36.3; O2SAT 99
[2020-05-14 14:39] VITALS: PULSE 98
--- NOTE | 2020-05-14 20:22 | PC.NURSE ---
Daughter just called and said her mother was discharged today. But no insulin syringes were sent to pharmacy to be filled. I called [facility] in [place] and ordered one box of U-100 29 gauge insulin syringes. with one refill. Per Dr. Pearce.
--- NOTE | 2020-05-16 14:07 | DS_ITS ---
DATE OF DISCHARGE: 05/14/2020 DISCHARGE PRIMARY REHAB IMPAIRMENT CATEGORY: Cardiac with the etiological diagnosis of aortic dissection and is status post surgery. DISCHARGE ACTIVE COMORBID CONDITIONS: 1. Hypertension. 2. Dyslipidemia. 3. Coronary artery disease with non-ST myocardial infarction. 4. Pericardial effusion with history of cardiac tamponade. REASON FOR ADMISSION: A 60-year-old right-handed female presented to [facility] on 03/[facility]/[address] scan, as she was found to have an aortic dissection. She was walking to her car following the CT scan and fell. She broke her fall to left hand and stuck her knee and right side of her face on the ground. She was noted to have immediate swelling and bruising around the right eye and was unable to open it. Facial x-rays revealed no fracture, so as the x-ray of the knee and the wrist. She was transferred to [facility] for further management of the aortic dissection. She was on Plavix and was asymptomatic, they opted to perform the repair after the Plavix was washed out, and she was monitored in the ICU until the procedure could be completed. She underwent surgical repair on 04/08/2020, followed by delayed sternal closure with plating on 03/20/2020. Child Care Sitter were consulted to evaluate the preseptal hematoma, as the patient's vision was intact. No further intervention was carried out. She received the amiodarone and Coreg for the atrial fibrillation and rapid ventricular response. She was on room air, though she has acute pulmonary insufficiency. Initially, her ejection fraction was only 40%, so her aspirin and statins were continued. Her acute kidney injury, hemodialysis catheter was removed on 04/26. Her uncontrolled diabetes mellitus were resolved. She was transferred on rehab. She was transfer on heparin 5000 units q.8 hours for DVT prophylaxis and she had no history of COVID contact or exposure. LEVEL OF FUNCTION AT THE TIME OF ADMISSION: She was independent in eating, required substantial assistance for the oral hygiene, partial assistance for toileting, bathing, upper body dressing, substantial assist for lower body dressing. She was dependent for footwear, required setup for rolling in bed, partial assistance for sit to lying, lying to sit, sit to stand, chair transfer, toilet transfer, she was unable to car transfer, walk 50 feet with 2 turns, 150 feet and curb or step, 4 steps, 12 step. She required supervision for walking 10 feet, and 10 feet on uneven surfaces also. ANTICIPATED REHAB GOALS AT THE TIME OF ADMISSION: Were to make her independent in all the modalities except that she will require setup for the curb or step. LEVEL OF FUNCTION AT THE TIME OF DISCHARGE: She became independent in all the modalities except that she required partial assistance for the footwear, supervision for the curb or step, and she was unable to walk 4 steps and 12 steps. HOSPITAL COURSE: During the hospitalization, she continued to have actively involving the Physical therapy and Occupational therapy. She was followed by the [facility] for the cardiac problem with the lower extremity edema in addition to the history of underlying cardiac problem for which they suggested that she will be followed by the physician at the [facility]. [facility]. Chronic lower extremity edema and again instructions were to follow with the physician at [facility]. At the time of discharge, she was able to ambulate independently 10 feet, 50 feet with 2 turns, 150 feet with a wheeled walker and able to transfer in and out of chair independently. She continued to have edema of the lower extremities. Vital signs were stable with pulse 84, respiration 20, blood pressure 122/68. Discharge instruction may shower, not to drive. Follow l
== END 2020-05-14 15:20 | disposition home health service (06) | DRG 949 ==
PROVIDERS: Nurse Practitioner Adult Health; Admitting Provider Psychiatry & Neurology Neurology; Visit Provider Psychiatry & Neurology Neurology
DX: Z48.812 Encounter for surgical aftercare following surgery on the circulatory system (principal); I50.43 Acute on chronic combined systolic (congestive) and diastolic (congestive) heart failure; C7A.8 Other malignant neuroendocrine tumors; I30.8 Other forms of acute pericarditis; N17.9 Acute kidney failure, unspecified; Z68.43 Body mass index [BMI] 50.0-59.9, adult; R60.0 Localized edema; S00.83XD Contusion of other part of head, subsequent encounter; E78.5 Hyperlipidemia, unspecified; E11.9 Type 2 diabetes mellitus without complications; E03.9 Hypothyroidism, unspecified; I25.2 Old myocardial infarction; I48.91 Unspecified atrial fibrillation; I95.1 Orthostatic hypotension; I11.0 Hypertensive heart disease with heart failure; I25.10 Atherosclerotic heart disease of native coronary artery without angina pectoris; C73 Malignant neoplasm of thyroid gland; M19.90 Unspecified osteoarthritis, unspecified site; Z90.49 Acquired absence of other specified parts of digestive tract; E66.01 Morbid (severe) obesity due to excess calories; Z79.52 Long term (current) use of systemic steroids; Z79.4 Long term (current) use of insulin; Z79.02 Long term (current) use of antithrombotics/antiplatelets; J98.4 Other disorders of lung
CPT/HCPCS: 36415; 71045; 80048; 83735; 85025; 93970; 97110; 97116; 97161; 97165; 97530; 97535; A9270; J1644; J1815; J7512